=== PATIENT | male | born 1995 | race Two or more races ===

== ENCOUNTER 2024-06-24 12:38 | Emergency (ER) | payer MEDICAID ==
[~2024-06-24] VITALS: Ht 170.2 cm; Wt 72.6 kg
[2024-06-24 14:22] LABS: *BILIRUBIN,URIN NEGATIVE (NEGATIVE); *BLOOD, URINE NEGATIVE (NEGATIVE); *CLARITY,URINE CLEAR (CLEAR); *COLOR,URINE YELLOW (YELLOW); *KETONES,URINE NEGATIVE (NEGATIVE); *PROTEIN,URINE NEGATIVE (NEGATIVE); *UROBILINOGEN,URINE 0.2 E.U./dl (NORMAL); LEUKOCYTE ESTERASE ,URINE NEGATIVE (NEGATIVE); NITRITE, URINE NEGATIVE (NEGATIVE); PH,URINE 7.5 (5.0-8.0); UGLUCOSE NEGATIVE (NEGATIVE)
[2024-06-24] MEDS ORDERED: CEFTRIAXONE 500 MG VIAL ONE (15:01)
[2024-06-24] MEDS ORDERED: NAPR500T6 PO (15:03)
[2024-06-24] MEDS ORDERED: DOXY-326 PO (15:03)
[2024-06-24] MEDS ORDERED: LIDOCAINE HCL 1% 20 ML VIAL ONE (15:03)
[2024-06-24] MEDS: CEFTRIAXONE 500 MG VIAL IM ONE (15:12)
[2024-06-24 15:24] VITALS: BP 140/90; TEMP 98.3; O2SAT 99
[2024-06-24 16:12] LABS: HIV-1 p24 ANTIGEN NON REACTIVE (NONREACTIVE); HIV-1/2 ANTIBODY NON REACTIVE (NONREACTIVE)
== END 2024-06-24 15:24 | disposition home or self-care (01) ==
LOC: ER 12:38
DX: N45.1 Epididymitis (principal)
CPT/HCPCS: 99285; 86592; 81003; 87806; 76870; 96372; J0696; J3490; 36415; A4606; A4663